=== PATIENT | female | born 1970 | race Caucasian/White ===

== ENCOUNTER 2021-12-02 18:26 | Emergency (ER) | payer OTHER ==
[~2021-12-02] VITALS: Ht 154.9 cm; Wt 58.5 kg
[2021-12-02] MEDS ORDERED: MECLIZINE 25 MG TAB PO ONE (18:40)
[2021-12-02] MEDS ORDERED: KETOROLAC 15 MG/ML VIAL IM ONE (18:40)
[2021-12-02 19:03] VITALS: BP 129/63
--- NOTE | 2021-12-02 20:26 | NUR ---
JIGNA W/C ASSISTED TO BED 6
[2021-12-02 20:29] VITALS: BP 136/70
--- NOTE | 2021-12-02 20:38 | NUR ---
DR MAS AT BEDSIDE.
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
[2021-12-02] MEDS ORDERED: IBUP-2213 PO (20:46)
--- NOTE | 2021-12-02 20:51 | NUR ---
Patient discharged with v/s stable. Written and verbal after care instructions given and explained. Patient alert, oriented and verbalized understanding of instructions. Ambulatory with steady gait. All questions addressed prior to discharge. ID band removed. Patient advised to follow up with PMD. Rx of IBUPROFEN given. Opportunity to ask questions provided and answered.
--- NOTE | 2021-12-02 20:56 | NUR ---
The patient's care was reviewed and supervised by Christina Cohen RN, RN.
== END 2021-12-02 20:51 | disposition home or self-care (01) ==
LOC: MED 18:26 → EDBD 18:26 → MED 20:51
DX: S09.90XA Unspecified injury of head, initial encounter (principal); M54.2 Cervicalgia; R42 Dizziness and giddiness; Z79.899 Other long term (current) drug therapy; V49.59XA Passenger injured in collision with other motor vehicles in traffic accident, initial encounter; Y93.89 Activity, other specified; Y92.89 Other specified places as the place of occurrence of the external cause; Y99.8 Other external cause status
CPT/HCPCS: 70450; 71045; 72125; 96372; 99284; J1885; J8597; Q0092